=== PATIENT | male | born 1970 | race Caucasian/White ===

== ENCOUNTER 2020-07-26 07:06 | Day surgery (SDC) | payer BC ==
[2020-07-26] MEDS ORDERED: Propofol 200 MG/20 ML SDV IV ONE (07:07)
[2020-07-26] MEDS ORDERED: Lidocaine 1% PF 2 ML SDV INJECT ONE (07:07)
[2020-07-26] MEDS ORDERED: Sodium Chloride 0.9% 10 ML Syringe FLUSH PRN (07:15)
[2020-07-26] MEDS: Lactated Ringers 1,000 ML IV SCH (07:55)
[2020-07-26] MEDS: Simethicone Drops 40 MG/0.6 ML 30 ML Bottle ONE (08:35)
--- NOTE | 2020-07-26 09:04 | PCM.OPNOTE ---
- General Post-Op/Procedure Note Date of Surgery/Procedure: 07/26/20 Operative Procedure(s): c scope with biopy cold forceps Findings: rectal polyp (hyperplastic) internal hemorrhoids grade I Pre Op Diagnosis: bight red blood per rectum Post-Op Diagnosis: rectal polyp (hyperplastic). internal hemorrhoids grade I Anesthesia Technique: MAC Primary Surgeon: Micheal Luna Anesthesia Provider: Yoav Nicole Pathology: rectal polyp Complications: None Condition: Good Free Text/Narrative:: see dictation #[id number]
[2020-07-26 09:48] VITALS: BP 112/79; PULSE 66
--- NOTE | 2020-07-26 12:48 | OR ---
DATE OF OPERATION: 07/26/2020 SURGEON: Micheal Luna MD PROCEDURE PERFORMED: Colonoscopy with cold forceps biopsy. PREOPERATIVE DIAGNOSIS: History of bright red blood per rectum. POSTOPERATIVE DIAGNOSES: Rectal polyp (hyperplasia) and grade 1 internal hemorrhoids. INDICATIONS FOR PROCEDURE: This is a 49-year-old white male who was referred with the above-mentioned history of bleeding per rectum. This is bright red in nature. He was offered and accepted colonoscopy as part of his workup. DESCRIPTION OF OPERATION: After an excellent IV sedation was administered, digital rectal exam was performed. No marked abnormality was noted. Flexible colonoscope was inserted and advanced to the cecum. Prep was excellent. The following findings were noted. Ascending colon, unremarkable. Transverse colon, unremarkable. Descending colon, unremarkable. Sigmoid, unremarkable. Rectum, at approximately 10 cm, hyperplastic appearing polyp, biopsied with cold biopsy forceps and sent for permanent. On retroflexion of the scope, there was some evidence of grade 1 internal hemorrhoids. The patient tolerated the procedure well and was taken to recovery room. Results will be sent to him via letter. /[id number] /MODL
== END 2020-07-26 09:42 | disposition home or self-care (01) ==
LOC: FB.SDS 07:06
PROVIDERS: ATTEND Surgery
DX: K62.1 Rectal polyp (principal); K64.0 First degree hemorrhoids; Z79.899 Other long term (current) drug therapy
CPT/HCPCS: 00811; 45380; 88305; A9270; J2001; J2704; J7120

== ENCOUNTER 2020-08-27 06:05 | Day surgery (SDC) | payer BC ==
[2020-08-27] MEDS ORDERED: Propofol 200 MG/20 ML SDV IV ONE (06:06)
[2020-08-27] MEDS ORDERED: Lactated Ringers 1,000 ML IV SCH (06:15)
[2020-08-27] MEDS ORDERED: Sodium Chloride 0.9% 10 ML Syringe FLUSH PRN (06:15)
--- NOTE | 2020-08-27 07:43 | PCM.OPNOTE ---
- General Post-Op/Procedure Note Date of Surgery/Procedure: 08/27/20 Operative Procedure(s): egd with cold forceps biopsy Findings: gastritis Pre Op Diagnosis: epigastric abd pain Post-Op Diagnosis: gastritis Anesthesia Technique: DANNY Primary Surgeon: Micheal Luna Anesthesia Provider: Catrachito Davis Pathology: stomach Complications: None Condition: Good Free Text/Narrative:: see dictation #[id number]
[2020-08-27 09:36] VITALS: BP 100/67; PULSE 65
--- NOTE | 2020-08-28 08:56 | OR ---
DATE OF OPERATION: 08/27/2020 SURGEON: Micheal Luna MD PROCEDURE PERFORMED: Esophagogastroduodenoscopy with cold forceps biopsy. PREOPERATIVE DIAGNOSIS: Epigastric abdominal pain. POSTOPERATIVE DIAGNOSIS: Gastritis. INDICATIONS FOR PROCEDURE: This is a 49-year-old white male, who has been experiencing some epigastric abdominal pain. It has gotten progressively worse of the past couple of weeks. He was offered and accepted an EGD as part of his workup for his pain. DESCRIPTION OF OPERATION: After an excellent IV sedation was administered, the bite block was inserted. The flexible endoscope was passed without difficulty down the patient's esophagus into the stomach. Stomach was insufflated. Scope passed through the pylorus through the second portion of the duodenum and slowly withdrawn. The following findings were noted. Duodenum is unremarkable. Stomach demonstrated diffuse marked gastritis throughout the entire stomach with friable mucosa. Multiple biopsies were taken from the antrum as well as the body of the stomach. The GE junction measured at 40 cm. The esophagus was essentially unremarkable. Stomach was deflated. Scope was removed. The patient tolerated the procedure well, was taken to recovery in good condition. Results will be sent via letter. /[id number] /MODL
== END 2020-08-27 08:38 | disposition home or self-care (01) ==
LOC: FB.SDS 06:05
PROVIDERS: ATTEND Surgery
DX: K29.50 Unspecified chronic gastritis without bleeding (principal); F17.210 Nicotine dependence, cigarettes, uncomplicated; Z01.812 Encounter for preprocedural laboratory examination; Z20.822 Contact with and (suspected) exposure to COVID-19; Z79.899 Other long term (current) drug therapy
CPT/HCPCS: 00731-QZ; 88305; 88342; J2704; J7120

== ENCOUNTER 2020-12-10 11:36 | Emergency (ER) | payer BC ==
[2020-12-10] MEDS ORDERED: SUMAtriptan 6 MG/0.5 ML SDV SUBCUT ONE (11:55)
[2020-12-10 11:58] VITALS: BP 127/82; PULSE 85
--- NOTE | 2020-12-10 11:59 | EDM.PDOC ---
ED HPI GENERAL MEDICAL PROBLEM - General Chief Complaint: Headache Stated Complaint: MIGRAIN Time Seen by Provider: 12/10/20 11:56 Source of Information: Reports: Patient History Limitations: Reports: No Limitations - History of Present Illness INITIAL COMMENTS - FREE TEXT/NARRATIVE: Presents with typical right sided migraine headache with nausea since 299. Denies fever, dizziness, vomiting, or diarrhea. Patient usually takes Imitrex for his migraines, but he is out. He does have refills, but pharmacy is closed today. Onset Date: 12/10/20 Onset Time: 03:00 Location: Reports: Head Quality: Reports: Ache Severity: Moderate - Related Data Allergies Allergy/AdvReac Type Severity Reaction Status Date / Time No Known Allergies Allergy Verified 12/10/20 11:54 Home Meds: Home Meds SUMAtriptan [Imitrex] 50 mg PO ASDIRECTED PRN 07/25/20 [History] Venlafaxine HCl [Venlafaxine ER] 150 mg PO DAILY 07/25/20 [History] traZODone 50 mg PO BEDTIME 07/25/20 [History] Past Medical History HEENT History: Reports: Impaired Vision Cardiovascular History: Reports: None Respiratory History: Reports: None Gastrointestinal History: Reports: Other (See Below) Other Gastrointestinal History: ABDOMINAL PAIN Genitourinary History: Reports: None Musculoskeletal History: Reports: Back Pain, Chronic, Other (See Below) Other Musculoskeletal History: SHOULDER JOINT PAIN Neurological History: Reports: Migraines Psychiatric History: Reports: None Endocrine/Metabolic History: Reports: None Hematologic History: Reports: None Immunologic History: Reports: None Oncologic (Cancer) History: Reports: None Dermatologic History: Reports: None - Infectious Disease History Infectious Disease History: Reports: Chicken Pox - Past Surgical History Head Surgeries/Procedures: Reports: None HEENT Surgical History: Reports: None Cardiovascular Surgical History: Reports: None Respiratory Surgical History: Reports: None GI Surgical History: Reports: None Male Surgical History: Reports: None Endocrine Surgical History: Reports: None Neurological Surgical History: Reports: None Musculoskeletal Surgical History: Reports: None Oncologic Surgical History: Reports: None Dermatological Surgical History: Reports: None Social & Family History - Tobacco Use Tobacco Use Status *Q: Current Every Day Tobacco User Tobacco Use Within Last Twelve Months: Cigarettes - Caffeine Use Caffeine Use: Reports: Coffee ED ROS GENERAL - Review of Systems Review Of Systems: Comprehensive ROS is negative, except as noted in HPI. - Physical Exam Exam: See Below Exam Limited By: No Limitations General Appearance: WD/WN, No Apparent Distress Eye Exam: Bilateral Eye: EOMI, PERRL Ears: Normal External Exam Throat/Mouth: Normal Inspection, Normal Oropharynx, No Airway Compromise Head Exam: Atraumatic, Normocephalic Neck: Supple Respiratory/Chest: No Respiratory Distress, Lungs Clear, Normal Breath Sounds Cardiovascular: Regular Rate, Rhythm, No Murmur Neuro Exam (Abbreviated): Alert, Oriented, Normal Cognition Extremities: Normal Range of Motion Psychiatric: Normal Affect, Normal Mood Skin Exam: Warm, Dry, Intact Course - Vital Signs Last Recorded V/S: Last Vital Signs Temp 36.8 C 12/10/20 11:36 Pulse 85 12/10/20 11:36 Resp 18 12/10/20 11:36 BP 127/82 12/10/20 11:36 Pulse Ox 100 12/10/20 11:36 - Orders/Labs/Meds Meds: Medications Discontinued Medications Generic Name Dose Route Start Last Admin Trade Name Cindy PRN Reason Stop Dose Admin Sumatriptan Succinate 6 mg 12/10/20 11:55 12/10/20 12:04 Sumatriptan 6 Mg/0.5 Ml Sdv SUBCUT 12/10/20 11:56 6 mg ONETIME ONE Administration - Re-Assessments/Exams Free Text/Narrative Re-Assessment/Exam: 12/10/20 12:26 Symptoms improved after Imitrex 6 mg SC. Departure - Departure Time of Disposition: 12:27 Disposition: Home, Self-Care 01 Condition: Good Clinical Impression: Migraine Qualifiers: Migraine type: unspecified Status migrainosus presence: without status migrainosus Intractability: not intractable Qualified Code(s): G43.909 - Migraine, unspecified, not intractable, without status migrainosus - Discharge Information *PRESCRIPTION DRUG MONITORING PROGRAM REVIEWED*: No *COPY OF PRESCRIPTION DRUG MONITORING REPORT IN PATIENT KAYA: Not Applicable Forms: ED Department Discharge Additional Instructions: Refill your Imitrex prescription. Rest, fluids. Follow up as needed. Sepsis Event Note (ED) - Focused Exam Vital Signs: Vital Signs Temp Pulse Resp BP Pulse Ox 12/10/20 11:36 36.8 C 85 18 127/82 100
== END 2020-12-10 12:36 | disposition home or self-care (01) ==
LOC: FB.ED 11:36
DX: G43.009 Migraine without aura, not intractable, without status migrainosus (principal)
CPT/HCPCS: 96372; 99283; J3030

== ENCOUNTER 2023-06-03 21:21 | Emergency (ER) | payer BC ==
[2023-06-03] MEDS ORDERED: Sodium Chloride 0.9% 10 ML Syringe FLUSH PRN (21:35)
[2023-06-03 21:47] LABS: BASOPHILS ABSOLUTE AUTO 0.1 x10-3/uL (0.0-0.3); BASOPHILS PERCENT AUTO 0.6 % (0.3-3.8); EOSINOPHILS ABSOLUTE AUTO 0.3 x10-3/uL (0.0-0.6); EOSINOPHILS PERCENT AUTO 2.3 % (0.1-6.8); HEMATOCRIT 41.2 % (38.3-50.1); HEMOGLOBIN 14.3 g/dL (12.9-17.7); LYMPHOCYTES ABSOLUTE AUTO 4.4 x10-3/uL (0.5-4.5); LYMPHOCYTES PERCENT AUTO 33.7 % (15.8-45.3); MEAN CORPUSCULAR HEMOGLOBIN 32.5 pg (27.0-33.3); MEAN CORPUSCULAR HGB CONC 34.6 g/dL (28.7-35.3); MEAN CORPUSCULAR VOLUME 93.8 fL (80.8-98.7); MEAN PLATELET VOLUME 7.9 fL (6.7-11.0); MONOCYTES PERCENT AUTO 7.8 % (5.5-15.2); NEUTROPHILS ABSOLUTE AUTO 7.3 x10-3/uL (1.7-6.9); NEUTROPHILS PERCENT AUTO 55.6 % (40.3-71.8); PLATELET COUNT,PLT 306 x10(3)uL (117-477); RED BLOOD CELL COUNT 4.39 x10(6)uL (3.90-5.90); RED CELL DISTRIBUTION WIDTH 12.6 % (12.4-15.0)
[2023-06-03 21:48] LABS: BLOOD UREA NITROGEN,BUN 14 mg/dL (7-18); BUN/CREATININE RATIO 12.7 (9-20); CALCIUM 8.8 mg/dL (8.6-10.2); CARBON DIOXIDE,CO2 27 mmol/L (21-32); CHLORIDE,CL 105 mmol/L (100-110); CREATININE 1.1 mg/dL (0.70-1.30); ESTIMATED GFR 82 mL/min (>60); GLUCOSE RANDOM 169 mg/dL (80-116); POTASSIUM,K 3.8 mmol/L (3.5-5.3); SODIUM,NA 141 mmol/L (135-145)
[2023-06-03 21:54] LABS: A/G RATIO 1.1; ALANINE AMINOTRANSFERASE,ALT 19 U/L (12-36); ALBUMIN 3.6 g/dL (3.5-5.2); ALKALINE PHOSPHATASE 61 IU/L (56-112); ASPARTATE AMNIOTRANSFERASE,AST 12 IU/L (5-25); BILIRUBIN TOTAL 0.3 mg/dL (0.1-1.3)
[2023-06-03 21:59] LABS: INR 1.02 (1.00-1.24); PROTHROMBIN TIME 10.5 sec (9.0-11.1)
[2023-06-03 22:13] LABS: PTT,PARTIAL THROMBOPLSTIN TIME 25.1 SECONDS (24.4-33.2)
[2023-06-03 22:45] LABS: AMPHETAMINES SCREEN, URINE NEGATIVE (NEGATIVE); BARBITURATE SCREEN,URINE NEGATIVE (NEGATIVE); BENZODIAZEPINES SCREEN,URINE NEGATIVE (NEGATIVE); METHADONE SCREEN, URINE NEGATIVE (NEGATIVE); METHAMPHETAMINE SCREEN, URINE NEGATIVE (NEGATIVE); OXYCODONE SCREEN,URINE NEGATIVE (NEGATIVE); THC SCREEN,URINE POSITIVE (NEGATIVE)
[2023-06-03 22:46] LABS: BUPRENORPHINE SCREEN,URINE NEGATIVE (NEGATIVE)
[2023-06-04 05:56] VITALS: BP 98/64; PULSE 68
== END 2023-06-03 23:05 | disposition home or self-care (01) ==
LOC: FB.ED 21:21
DX: H53.9 Unspecified visual disturbance (principal); Z79.899 Other long term (current) drug therapy
CPT/HCPCS: 36415; 70450; 71045; 80053; 80307; 82947; 84484; 85025; 85610; 85730; 93005; 93010; 99283; 99284